=== PATIENT | female | born 1960 | race Hispanic/Latino ===

== ENCOUNTER → 2018-10-15 | Outpatient (CLI) | payer BC | END | disposition home or self-care (01) | LOC: SHCH 10:35 | PROVIDERS: ATTEND Internal Medicine Cardiovascular Disease | DX: R00.2 Palpitations (principal) | CPT/HCPCS: 93306 ==

== ENCOUNTER 2023-01-05 09:14 | Emergency (ER) | payer BC ==
[~2023-01-05] VITALS: Ht 162.6 cm; Wt 108.9 kg
[2023-01-05 09:56] LABS: BASOPHILS % (AUTO) 0.4 % (0.0-5.0); HEMATOCRIT 43.9 % (36-48); MEAN CORPUSCULAR HEMOGLOBIN 29.2 pg (27.0-33.0); MEAN CORPUSCULAR HGB CONC 32.8 g/dL (32.0-36.0); NEUTROPHILS % (AUTO) 58.2 % (40.0-77.0); PLATELET COUNT (AUTO) 252 K/uL (130-400); RED BLOOD CELL COUNT(AUTO) 4.93 MIL/uL (4.00-5.50); RED CELL DISTRIBUTION WIDTH 13.2 % (11.0-15.5); WHITE BLOOD COUNT (AUTO) 8.3 K/uL (4.8-10.8)
[2023-01-05] MEDS ORDERED: ASPIRIN 325MG TAB PO ONE (10:00)
[2023-01-05] MEDS ORDERED: NITROGLYCERIN 1GM OINT 1 INCH/1GM TD ONE (10:00)
[2023-01-05 10:05] LABS: CREATININE 0.8 mg/dL (0.5-1.5); POTASSIUM 3.9 mmol/L (3.5-5.1)
[2023-01-05 10:09] LABS: ALBUMIN 3.7 g/dL (3.5-5.0); MAGNESIUM 1.9 mg/dL (1.80-2.40)
[2023-01-05] MEDS ORDERED: KETOROLAC 15MG/ML VIAL (15MG/ML) IV ONE (11:30)
[2023-01-05] MEDS ORDERED: DEXAMETHASONE SOD PHOSPHATE 4 MG/ML 1ML VIAL IV ONE (11:30)
[2023-01-05 12:09] LABS: B-TYPE NATRIURETIC PEPTIDE 6 pg/mL (0-100)
[2023-01-05 13:57] VITALS: BP 154/71
[2023-01-05] MEDS ORDERED: NAPR-1180 PO (13:58)
== END 2023-01-05 14:04 | disposition home or self-care (01) ==
LOC: EDH 09:14
DX: M94.0 Chondrocostal junction syndrome [Tietze] (principal); Z88.0 Allergy status to penicillin
CPT/HCPCS: 99284; 96374; 71045; 96375; 83735; 84484 ×2; 80053; 83880; 85025; 36415; 93005; J1100; J1885

== ENCOUNTER 2023-04-09 10:41 | Emergency (ER) | payer BC ==
[~2023-04-09] VITALS: Ht 165.1 cm; Wt 104.3 kg
[~2023-04-09 10:41] MED LIST: NAPR-1180 PO
[2023-04-09] MEDS ORDERED: KETOROLAC 60 MG VIAL (30MG/ML) IM ONE (11:30)
[2023-04-09] MEDS ORDERED: HYDROCODONE/ACETAMINOPHEN 5/325 MG TAB PO ONE (11:30)
[2023-04-09] MEDS ORDERED: ACET-2079 PO (13:18)
[2023-04-09] MEDS ORDERED: IBUP-2070 PO (13:18)
[2023-04-09] MEDS ORDERED: MORPHINE 4 MG SYG IM ONE (15:30)
[2023-04-09 16:11] VITALS: BP 161/91; PULSE 62; RESP 18; O2SAT 96
== END 2023-04-09 16:20 | disposition home or self-care (01) ==
LOC: EDH 10:41
DX: S42.292A Other displaced fracture of upper end of left humerus, initial encounter for closed fracture (principal); M94.0 Chondrocostal junction syndrome [Tietze]; E11.9 Type 2 diabetes mellitus without complications; E78.00 Pure hypercholesterolemia, unspecified; I10 Essential (primary) hypertension; E66.9 Obesity, unspecified; Z68.38 Body mass index [BMI] 38.0-38.9, adult; W19.XXXA Unspecified fall, initial encounter; Y93.89 Activity, other specified; Y92.89 Other specified places as the place of occurrence of the external cause; Y99.8 Other external cause status
CPT/HCPCS: 99284; 73060; 73030; 96372 ×2; J2270; J1885

== ENCOUNTER → 2023-07-09 | Outpatient (CLI) | payer BC ==
[~2023-07-09] MED LIST changes: +ACET-2079 PO; +GADOTERATE MEGLUMINE 5 MMOL/10 ML VIAL IV ONE; +IBUP-2070 PO
== END | disposition home or self-care (01) ==
LOC: RAH 10:06
PROVIDERS: ATTEND Neurological Surgery
DX: M47.26 Other spondylosis with radiculopathy, lumbar region (principal); C50.919 Malignant neoplasm of unspecified site of unspecified female breast; M48.061 Spinal stenosis, lumbar region without neurogenic claudication
CPT/HCPCS: 72158; A9575